=== PATIENT | male | born 1985 | race Caucasian/White ===

== ENCOUNTER → 2023-09-04 | Outpatient (CLI) | payer OTHER ==
[~2023-09-04] MED LIST: CELEXA40 MG PO; DESYREL 50MG50 MG PO; MELATONIN3 M1 PO; ZOFRAN 4MG T4 MG/TAB PO
== END ==
LOC: MHCPAIN 12:59
DX: M54.50 Low back pain, unspecified (principal); M47.816 Spondylosis without myelopathy or radiculopathy, lumbar region; M25.561 Pain in right knee
CPT/HCPCS: G0463

== ENCOUNTER → 2023-11-27 | Outpatient (CLI) | payer OTHER | LOC: MHCPAIN 13:35 | DX: M54.50 Low back pain, unspecified (principal); M47.816 Spondylosis without myelopathy or radiculopathy, lumbar region; M25.562 Pain in left knee; M25.561 Pain in right knee | CPT/HCPCS: G0463 ==

== ENCOUNTER → 2024-02-19 | Outpatient (CLI) | payer OTHER | LOC: MHCPAIN 13:52 | DX: M54.50 Low back pain, unspecified (principal); M47.816 Spondylosis without myelopathy or radiculopathy, lumbar region; M54.6 Pain in thoracic spine | CPT/HCPCS: G0463 ==